=== PATIENT | female | born 1975 | race African-American/Black ===

== ENCOUNTER 2016-09-10 13:56 | Emergency (ER) | payer MEDICAID, OTHER ==
[~2016-09-10] VITALS: Ht 165.1 cm; Wt 100.0 kg
[~2016-09-10 13:56] MED LIST: BACT400T PO; DEPO150I IM; MECL-62 PO
[2016-09-10 13:57] VITALS: BP 157/84; PULSE 93; RESP 16; TEMP 98.4; O2SAT 100
--- NOTE | 2016-09-10 14:14 | PD ---
Physical Exam Time Seen by Provider: 14:13 Narrative 40 y/o female here with 3 days of dizziness, nausea, some frontal head congestion. She had similar symptoms 8 months ago and was dx with vertigo. Vital signs reviewed. Seen at triage desk. Awaiting bed placement. Data Data Last Documented VS Vital Signs Date Time Temp Pulse Resp B/P Pulse Ox O2 Delivery O2 Flow Rate FiO2 09/10/16 13:57 98.4 93 16 157/84 100 MDM Medical Record Reviewed: Yes Supervised Visit with NATALI: No Adalberto Echols Sep 10, 2016 14:14
--- NOTE | 2016-09-10 14:26 | PD ---
HPI Chief Complaint: Dizziness Time Seen by Provider: 14:26 Travel History International Travel<30 days: No Contact w/Intl Traveler<30days: No Traveled to known affect area: No History of Present Illness HPI 40 YO F presents to the ED for evaluation of 3 day history history of headache and dizziness. She describes the headache as pressure in the front of her face. She states that her eyes feel puffy and she has mild blurred vision. Symptoms are constant. She has been able to do her normal activities stating "I just go slower." No alleviating or exacerbating factors reported. Patient endorses recently beginning Prozac and has previous diagnosis of vertigo. She denies trauma, fevers, chills, rhinorrhea, sore throat, chest pain, palpitations , shortness of breath. PFSH Past Medical History Asthma: Yes Heart Rhythm Problems: No Cardiac Catheterization: No Cardiovascular Problems: No High Cholesterol: No Congestive Heart Failure: No Diabetes: No Diminished Hearing: No Hypertension: No Respiratory: Yes (ASTHMA) Immunizations Current: Yes Migraines: Yes Seizures: No ?: Not : 6 Para: 6 Tubal Ligation: Yes Past Surgical History Section: Yes (X1) Cholecystectomy: Yes Coronary Artery Bypass Graft: No Social History Alcohol Use: No Tobacco Use: No Substance Use: No Allergies-Medications (Allergen,Severity, Reaction): Coded Allergies: Chocolate (Verified Allergy, Mild, LIPS SWELLING, 05/04/16) Tomato (Verified Allergy, Mild, LIPS SWELLING, 05/04/16) Reported Meds & Prescriptions Reported Meds & Active Scripts Active Claritin-D 24 HR (Loratadine-Pseudoephedrine 24 HR) 10-240 Mg Tab 1 Tab PO DAILY 15 Days Meclizine (Meclizine HCl) 25 Mg Tab 25 Mg PO BID PRN Depo-Provera Inj (Medroxyprogesterone Inj) 150 Mg/Ml Inj 150 Mg IM Q90D Reported Meclizine (Meclizine HCl) 25 Mg Tab 25 Mg PO BID PRN Bactrim (Sulfamethoxazole-Trimethoprim) 400-80 Mg Tab 1 Tab PO DAILY Review of Systems Except as stated in HPI: all other systems reviewed are Neg Physical Exam Narrative GENERAL: Well-nourished, well-developed alert black female in no acute distress. SKIN: Warm and dry. HEAD: Normocephalic. Atraumatic. No tenderness to palpation of the facial sinuses. EYES: No scleral icterus. No injection or drainage. PERRLA. EOMI. ENT: Pearly hubbard tympanic membranes bilaterally. Nasal mucosa is moist. Oropharynx without erythema, edema or exudate. NECK: Supple, trachea midline. No JVD or lymphadenopathy. CARDIOVASCULAR: Regular rate and rhythm without murmurs, gallops, or rubs. 2+ DP and radial pulses bilaterally. RESPIRATORY: Breath sounds clear and equal bilaterally. No accessory muscle use. GASTROINTESTINAL: Abdomen soft, non-tender, nondistended. + Bowel sounds MUSCULOSKELETAL: No cyanosis, or edema. Ambulatory, moves extremities spontaneously. NEUROLOGICAL: Awake and alert. Cranial nerves II through XII intact. Motor and sensory grossly within normal limits. Five out of 5 muscle strength in all muscle groups. Normal speech. BACK: Nontender without obvious deformity. No CVA tenderness. Data Data Last Documented VS Vital Signs Date Time Temp Pulse Resp B/P Pulse Ox O2 Delivery O2 Flow Rate FiO2 09/10/16 15:30 83 15 145/93 88 14 150/99 100 16 156/97 09/10/16 13:[address] Brain W/O Iv Contrast(Rout) (09/10/16 14:39) Meclizine (Antivert) (09/10/16 14:45) Orthostatic Vital Signs (09/10/16 14:49) MDM Medical Decision Making Medical Screen Exam Complete: Yes Emergency Medical Condition: Yes Differential Diagnosis Vertigo versus sinusitis versus allergic reaction versus drug-induced side effect versus less likely ICH versus other Narrative Course 40 YO F presents to the ED for evaluation of 3 day history history of headache and dizziness. She describes the headache as pressure in the front of her face. She states that her eyes feel puffy and she has mild blurred vision. Symptoms are constant. She has been able to do her normal activities stating "I just go slower." No alleviating or exacerbating factors reported. Patient endorses recently beginning Prozac and has previous diagnosis of vertigo. Vitals reviewed. ENT exam is unremarkable. No focal neuro deficits. She was administered [address] of the brain reveals no acute bony process or evidence of sinusitis. He was provided a brief course of meclizine. She was also provided with a month's supply of Claritin. She is instructed to take medication as prescribed. We discussed the possibility of exact side effect. Patient's instructed to follow-up with her primary care provider. She stable and discharged home. Diagnosis Primary Impression: Dizziness Referrals: Primary Care Physician Patient Instructions: Dizziness (ED), General Instructions Additional Instructions: Rest, hydrate. Take medications as prescribed. Follow up with the primary care provider. Return to the ED for any urgent or emergent medical condition. Med/Other Pt SpecificInfo: Prescription(s) given Scripts Loratadine-Pseudoephedrine 24 HR (Claritin-D 24 HR)10-240 Mg Tab1 Tab PO DAILY 15 Days Ref 0 Prov:Yareli Knight MD 09/10/16 Meclizine 25 Mg Tab25 Mg PO BID PRN (VERTIGO) #14 TAB Ref 0 Prov:Yareli Knight MD 09/10/16 Disposition: 01 DISCHARGE HOME Condition: Stable Julia Peterson Sep 10, 2016 14:26
[2016-09-10] MEDS ORDERED: MECLIZINE HCL 25 MG TAB PO ONE (14:45)
--- NOTE | 2016-09-10 15:11 | RADRPT ---
EXAM DATE/TIME: 09/10/2016 15:00 [facility] COMPARISON: No previous studies available for comparison. INDICATIONS : Evaluate for dizziness and blurred vision, sinus pressure for three days. RADIATION DOSE: 56.35 CTDIvol (mGy) MEDICAL HISTORY : SURGICAL HISTORY : Cholecystectomy. Tubal ligation. ENCOUNTER: Initial ACUITY: 3 days PAIN SCALE: 2/10 LOCATION: Bilateral cranial TECHNIQUE: Multiple contiguous axial images were obtained of the head. Using automated exposure control and adj ustment of the mA and/or kV according to patient size, radiation dose was kept as low as reasonably a chievable to obtain optimal diagnostic quality images. DICOM format image data is available electro nically for review and comparison. FINDINGS: CEREBRUM: The ventricles are normal for age. No evidence of midline shift, mass lesion, hemorrhage or acute in farction. No extra-axial fluid collections are seen. POSTERIOR FOSSA: The cerebellum and brainstem are intact. The 4th ventricle is midline. The cerebellopontine angle i s unremarkable. EXTRACRANIAL: The visualized portion of the orbits is intact. SKULL: The calvaria is intact. No evidence of skull fracture. CONCLUSION: Negative for acute process. Ezequiel Campoverde MD FACR on September 10, 2016 at 15:09 Board Certified Radiologist. This report was verified electronically.
[2016-09-10] MEDS ORDERED: LORA-400 PO (15:19)
[2016-09-10] MEDS ORDERED: MECL-62 PO (15:19)
[2016-09-10 15:30] VITALS: BP_SYST 145; BP_SYST 150; BP_SYST 156; BP_DIAS 93; BP_DIAS 97; BP_DIAS 99; RESP 14; RESP 15; RESP 16
== END 2016-09-10 16:10 | disposition home or self-care (01) ==
LOC: NEPD 13:56
DX: R42 Dizziness and giddiness (principal); R51 Headache; J45.909 Unspecified asthma, uncomplicated; Z79.899 Other long term (current) drug therapy
CPT/HCPCS: 70450; 99284

== ENCOUNTER 2016-09-30 12:56 | Observation (INO) | payer OTHER ==
[~2016-09-30 12:56] MED LIST changes: +LORA-400 PO
[2016-09-30 12:59] VITALS: BP 164/83; PULSE 97; RESP 20; TEMP 98.1; O2SAT 100
--- NOTE | 2016-09-30 13:05 | PD ---
Physical Exam Time Seen by Provider: 13:05 Narrative 40 y/o female with one hour of abdominal/chest pain. Vital signs reviewed. Seen at triage desk. Awaiting bed placement. Data Data Last Documented VS Vital Signs Date Time Temp Pulse Resp B/P Pulse Ox O2 Delivery O2 Flow Rate FiO2 09/30/16 12:59 98.1 97 20 164/83 100 Room Air [facility] Medical Record Reviewed: Yes Supervised Visit with NATALI: Adalberto Gillis Sep 30, 2016 13:05
--- NOTE | 2016-09-30 14:22 | PD ---
HPI Chief Complaint: Chest Pain Time Seen by Provider: 14:18 Travel History International Travel<30 days: No Contact w/Intl Traveler<30days: No Traveled to known affect area: No History of Present Illness HPI 40-year-old female came to the emergency room with history of some abdominal pain yesterday but since past 2 hours she is started having left-sided chest pain. No aggravating or relieving factors. The pain seems to be like a dull ache. No radiation of the pain. Significant family history of her father dying of heart attack at the age of 60s. Vital signs are stable otherwise. Patient is not a smoker. No history of diabetes or hypertension. PFSH Past Medical History Narrative Medical List of her past medical, surgical, social and family history is reviewed from the nursing note. Asthma: Yes Heart Rhythm Problems: No Cardiac Catheterization: No Cardiovascular Problems: No High Cholesterol: No Congestive Heart Failure: No Diabetes: No Diminished Hearing: No Hypertension: No Respiratory: Yes (ASTHMA) Immunizations Current: Yes Migraines: Yes Seizures: No ?: Not LMP: august 2016 : 6 Para: 6 Tubal Ligation: Yes Past Surgical History Section: Yes (X1) Cholecystectomy: Yes Coronary Artery Bypass Graft: No Family History Family Myocardial Infarction: Yes (FATHER OF CT) Social History Alcohol Use: No Tobacco Use: No Substance Use: No Allergies-Medications (Allergen,Severity, Reaction): Coded Allergies: Chocolate (Verified Allergy, Mild, LIPS SWELLING, 09/30/16) Tomato (Verified Allergy, Mild, LIPS SWELLING, 09/30/16) Comments List of her allergies reviewed from the nursing note. Reported Meds & Prescriptions Reported Meds & Active Scripts Active Reported Sertraline (Sertraline HCl) 100 Mg Tab 100 Mg PO DAILY Meclizine 25 (Meclizine HCl) 25 Mg Tab 25 Mg PO BID PRN Ergocalciferol 50,000 Unit Cap 50,000 Units PO TUESDAY Narrative Medication List of her home medications reviewed from the nursing note. Review of Systems Except as stated in HPI: all other systems reviewed are Neg Physical Exam Narrative GENERAL: Awake, alert, obese, mild distress SKIN: Focused skin assessment warm/dry. HEAD: Atraumatic. Normocephalic. EYES: Pupils equal and round. No scleral icterus. No injection or drainage. ENT: No nasal bleeding or discharge. Mucous membranes pink and moist. NECK: Trachea midline. No JVD. CARDIOVASCULAR: Regular rate and rhythm. No murmur appreciated. RESPIRATORY: No accessory muscle use. Clear to auscultation. Breath sounds equal bilaterally. GASTROINTESTINAL: Abdomen soft, non-tender, nondistended. Hepatic and splenic margins not palpable. MUSCULOSKELETAL: No obvious deformities. No clubbing. No cyanosis. No edema. NEUROLOGICAL: Awake and alert. No obvious cranial nerve deficits. Motor grossly within normal limits. Normal speech. PSYCHIATRIC: Appropriate mood and affect; insight and judgment normal. Data Data Last Documented VS Vital Signs Date Time Temp Pulse Resp B/P Pulse Ox O2 Delivery O2 Flow Rate FiO2 09/30/16 12:59 98.1 97 20 164/83 100 Room Air Orders Electrocardiogram (09/30/16 ) Ckmb (Isoenzyme) Profile (09/30/16 13:15) Complete Blood Count With Diff (09/30/16 13:15) Comprehensive Metabolic Panel (09/30/16 13:15) Magnesium (Mg) (09/30/16 13:15) Troponin I (09/30/16 13:15) Lipase (09/30/16 13:15) Urinalysis - C+S If Indicated (09/30/16 13:15) Ed Urine Pregnancytest Poc (09/30/16 13:15) Chest, Pa & Lat (09/30/16 13:15) Aspirin Chew (Aspirin Chew) (09/30/16 15:00) Vascular Access Team Consult/P PRN (09/30/16 15:42) Vascular Poc Ultrasound (09/30/16 ) CKMB (09/30/16 16:00) CKMB% (09/30/16 16:00) Admit Order (Ed Use Only) (09/30/16 17:15) Place In Observation (09/30/16 17:15) Activity Bed Rest With Brp (09/30/16 17:15) Vital Signs (Adult) Q4H (09/30/16 17:15) Cardiac Rhythm .As Directed (09/30/16 17:15) Notify Dr: Other .PRN (09/30/16 17:15) Notify Parameters (09/30/16 17:15) Resp Oxygen Nasal Cannula (09/30/16 ) Diet Heart Healthy (09/30/16 Dinner) Ckmb (Isoenzyme) Profile (09/30/16 17:15) Ckmb (Isoenzyme) Profile (09/30/16 20:15) Troponin I (09/30/16 17:15) Troponin I (09/30/16 20:15) Electrocardiogram (09/30/16 17:15) Electrocardiogram (09/30/16 20:15) ^ Obtain (09/30/16 17:15) Sodium Chloride 0.9% Flush (Ns Flush) (09/30/16 17:15) Sodium Chloride 0.9% Flush (Ns Flush) (09/30/16 21:00) Acetaminophen (Tylenol) (09/30/16 17:15) Ondansetron Inj (Zofran Inj) (09/30/16 17:15) Nitroglycerin Sl (Nitrostat Sl) (09/30/16 17:15) Shot Polisher / Telemetry LEONARD.Q8H (09/30/16 17:15) CKMB (09/30/16 19:13) CKMB% (09/30/16 19:13) CKMB (09/30/16 22:30) CKMB% (09/30/16 22:30) Labs Laboratory Tests Test 09/30/16 16:00 White Blood Count 11.8 TH/MM3 Red Blood Count 4.30 MIL/MM3 Hemoglobin 11.5 GM/DL Hematocrit 35.8 % Mean Corpuscular Volume 83.2 FL Mean Corpuscular Hemoglobin 26.8 PG Mean Corpuscular Hemoglobin 32.2 % Concent Red Cell Distribution Width 14.6 % Platelet Count 328 TH/MM3 Mean Platelet Volume 7.8 FL Neutrophils (%) (Auto) 66.8 % Lymphocytes (%) (Auto) 25.2 % Monocytes (%) (Auto) 6.3 % Eosinophils (%) (Auto) 1.1 % Basophils (%) (Auto) 0.6 % Neutrophils # (Auto) 7.9 TH/MM3 Lymphocytes # (Auto) 3.0 TH/MM3 Monocytes # (Auto) 0.7 TH/MM3 Eosinophils # (Auto) 0.1 TH/MM3 Basophils # (Auto) 0.1 TH/MM3 CBC Comment DIFF FINAL Differential Comment Urine Color YELLOW Urine Turbidity HAZY Urine pH 5.5 Urine Specific [place] 1.024 Urine Protein TRACE mg/dL Urine Glucose (UA) NEG mg/dL Urine Ketones 40 mg/dL Urine Occult Blood NEG Urine Nitrite NEG Urine Bilirubin NEG Urine Urobilinogen LESS THAN 2.0 MG/DL Urine Leukocyte Esterase MOD Urine RBC 1 /hpf Urine WBC 2 /hpf Urine Squamous Epithelial 5 /hpf Cells Urine Bacteria RARE /hpf Urine Mucus FEW /lpf Microscopic Urinalysis Comment CULT NOT INDICATED Sodium Level 139 MEQ/L Potassium Level 3.3 MEQ/L Chloride Level 104 MEQ/L Carbon Dioxide Level 25.9 MEQ/L Anion Gap 9 MEQ/L Blood Urea Nitrogen 6 MG/DL Creatinine 0.84 MG/DL Estimat Glomerular Filtration 91 ML/MIN Rate Random Glucose 65 MG/DL Calcium Level 8.8 MG/DL Magnesium Level 1.9 MG/DL Total Bilirubin 0.4 MG/DL Aspartate Amino Transf 14 U/L (AST/SGOT) Alanine Aminotransferase 17 U/L (ALT/SGPT) Alkaline Phosphatase 101 U/L Total Creatine Kinase 117 U/L Creatine Kinase MB 0.7 NG/ML Troponin I LESS THAN 0.02 NG/ML Total Protein 8.7 GM/DL Albumin 3.8 GM/DL Lipase 110 U/L [facility] Medical Decision Making Medical Screen Exam Complete: Yes Emergency Medical Condition: Yes Medical Record Reviewed: Yes Interpretation(s) Twelve-lead EKG was reviewed by me. Normal sinus rhythm, normal axis, nonspecific ST-T wave changes. Heart rate of 88 bpm. Differential Diagnosis ACS, non-STEMI, nonspecific chest Narrative Course 5:18 PM the test results of back and within normal limit. Patient was given 2 baby aspirin's to chew. She does have fact there and the formal family history , obesity and -Romanian. I would prefer to admit her to the chest pain center so that the tar pot man can see her and rule her out. I spent this to the patient and she understands. Procedures EKG Prior to Arrival: No Diagnosis Primary Impression: Chest pain Qualified Code: R07.9 - Chest pain, unspecified type Admitting Information Admitting Physician Requests: Observation Jefferson Gates MD Sep 30, 2016 14:22
--- NOTE | 2016-09-30 14:33 | RADRPT ---
EXAM DATE/TIME: 09/30/2016 14:06 [facility] COMPARISON: CHEST PA & LAT, October 17, 2013, 22:40. INDICATIONS : Chest pain. MEDICAL HISTORY : None. SURGICAL HISTORY : None. ENCOUNTER: Initial ACUITY: 2 days PAIN SCORE: 5/10 LOCATION: Bilateral upper chest FINDINGS: PA and lateral views of the chest demonstrate the lungs to be symmetrically aerated without evidence of mass, infiltrate or effusion. The cardiomediastinal contours are unremarkable. Osseous structure s are intact. CONCLUSION: Normal examination. Clips suggest cholecystectomy Ananda Fabian MD on September 30, 2016 at 14:30 Board Certified Radiologist. This report was verified electronically.
[2016-09-30] MEDS ORDERED: ASPIRIN 81 MG CHEW TAB CHEW ONE (15:00)
[2016-09-30 16:38] LABS: AUTOMATED NEUTROPHIL # 7.9 TH/MM3 (1.8-7.7); BASOPHIL # 0.1 TH/MM3 (0-0.2); BASOPHIL % 0.6 % (0.0-2.0); EOSINOPHIL # 0.1 TH/MM3 (0-0.4); EOSINOPHIL % 1.1 % (0.0-4.0); HEMATOCRIT 35.8 % (35.0-46.0); HEMO FLAGS DIFF FINAL; LYMPH % 25.2 % (9.0-44.0); MEAN CELL VOLUME 83.2 FL (80.0-100.0); MEAN CORPUSCULAR HEMOGLOBIN 26.8 PG (27.0-34.0); MEAN CORPUSCULAR HGB CONC 32.2 % (32.0-36.0); MONO % 6.3 % (0.0-8.0); NEUT % 66.8 % (16.0-70.0); PLATELET COUNT 328 TH/MM3 (150-450); RED CELL DISTRIBUTION WIDTH 14.6 % (11.6-17.2); WHITE BLOOD COUNT 11.8 TH/MM3 (4.0-11.0)
[2016-09-30 16:39] LABS: BACTERIA, URINE RARE /hpf; BLOOD, URINE NEG (NEG); COMMENT (UR) CULT NOT INDICATED; CULTURE IF INDICATED CULT NOT INDICATED; GLUCOSE,URINE NEG (NEG); KETONE, URINE 40 mg/dL (NEG); MUCUS URINE FEW /lpf (OCC); NITRITE,URINE NEG (NEG); PH, URINE 5.5 (5.0-8.5); SQUAMOUS EPITHELIAL CELL URINE 5 /hpf (0-5); URINE COLOR YELLOW (YELLW/STRAW)
[2016-09-30 17:06] LABS: ALT (GPT) 17 U/L (10-53); ANION GAP 9 MEQ/L (5-15); AST (GOT) 14 U/L (15-37); BICARBONATE 25.9 MEQ/L (21.0-32.0); BLOOD UREA NITROGEN 6 MG/DL (7-18); CHLORIDE 104 MEQ/L (98-107); GLOMERULAR FILTRATION RATE 91 ML/MIN (>89); MAGNESIUM 1.9 MG/DL (1.5-2.5); POTASSIUM 3.3 MEQ/L (3.5-5.1); SODIUM (NA) 139 MEQ/L (136-145)
[2016-09-30 17:10] LABS: ALKALINE PHOSPHATASE 101 U/L (45-117); CREATINE KINASE 117 U/L (26-192); TOTAL BILIRUBIN ADULT 0.4 MG/DL (0.2-1.0)
[2016-09-30] MEDS ORDERED: ACETAMINOPHEN 500 MG CPLT PO PRN (17:15)
[2016-09-30] MEDS ORDERED: ONDANSETRON HCL 4 MG/2 ML VIAL IV PRN (17:15)
[2016-09-30] MEDS ORDERED: NITROGLYCERIN 0.4 MG SL 25 TABS/BTL SL PRN (17:15)
[2016-09-30] MEDS ORDERED: SODIUM CHLORIDE 0.9% FLUSH 10 ML FLUSH IV FLUSH PRN (17:15)
[2016-09-30 17:22] LABS: CKMB 0.7 NG/ML (0.5-3.6)
[2016-09-30 18:13] VITALS: O2SAT 94
[2016-09-30 18:19] VITALS: BP 140/93; PULSE 92; RESP 18; O2SAT 99
[2016-09-30] MEDS ORDERED: MECL1TAB42 PO (19:12)
[2016-09-30] MEDS ORDERED: ERGO1CAP30 PO (19:12)
[2016-09-30 19:13] VITALS: BP 121/71; PULSE 87; RESP 18; O2SAT 100
[2016-09-30] MEDS ORDERED: SERT-129 PO (19:22)
[2016-09-30 20:11] VITALS: BP 144/92; PULSE 88; RESP 18; TEMP 99.2; O2SAT 97
[2016-09-30 20:55] LABS: CREATINE KINASE 111 U/L (26-192)
[2016-09-30 21:07] LABS: CKMB 0.7 NG/ML (0.5-3.6)
[2016-09-30] MEDS: SODIUM CHLORIDE 0.9% FLUSH 10 ML FLUSH IV FLUSH SCH (21:35)
[2016-09-30 23:11] LABS: CREATINE KINASE 101 U/L (26-192)
[2016-09-30 23:23] LABS: CKMB 0.5 NG/ML (0.5-3.6)
[2016-09-30 23:30] VITALS: BP 118/55; PULSE 93; RESP 18; TEMP 98.9; O2SAT 99
[2016-10-01 01:00] VITALS: PULSE 95
[2016-10-01 03:34] VITALS: BP 121/66; PULSE 93; RESP 18; TEMP 98.7; O2SAT 99
[2016-10-01 04:15] VITALS: PULSE 80
[2016-10-01 07:42] VITALS: BP 142/74; PULSE 85; RESP 18; TEMP 98.6; O2SAT 99
[2016-10-01] MEDS ORDERED: POTASSIUM CHLORIDE 20 MEQ CONTROLLED RELEASE TAB PO ONE (07:45)
[2016-10-01 08:08] VITALS: PULSE 86
--- NOTE | 2016-10-01 08:59 | HHI.HP ---
HPI Primary Care Physician No Primary Care Physician Chief Complaint Chest pain History of Present Illness This is a 40-year-old female that presents to ED via private vehicle with a complaint of chest discomfort that began yesterday at work. It lasted less than a minute. No associated symptoms. It has not recurred. Denies . Review of Systems General: Patient denies fevers, chills recent, and recent travel HEENT: Patient denies headache, sore throat, difficulty swallowing. Cardiovascular: Has the chest discomfort as mentioned above. Denies sensation of heart beating rapidly or irregularly. No syncope. Respiratory: Denies shortness of breath or inspirational chest discomfort. Denies coughing wheezing or hemoptysis. GI: Patient denies nausea, vomiting, diarrhea, abdominal pain, bloody stools. Musculoskeletal: Patient denies joint pain or edema. Denies calf pain or edema. Neurovascular: Patient denies numbness, tingling, weakness in extremities. Denies headache. Endocrine: Denies polyuria and polydipsia. Hematologic: Denies easy bruising. Skin: Denies rash or itching. Past Family Social History Allergies: Coded Allergies: Chocolate (Verified Allergy, Mild, LIPS SWELLING, 09/30/16) Tomato (Verified Allergy, Mild, LIPS SWELLING, 09/30/16) Past Medical History Denies hypertension, hyperlipidemia, diabetes, and known CAD. Past Surgical History Noncontributory. Reported Medications Reported Meds & Active Scripts Active Reported Sertraline (Sertraline HCl) 100 Mg Tab 100 Mg PO DAILY Meclizine 25 (Meclizine HCl) 25 Mg Tab 25 Mg PO BID PRN Ergocalciferol 50,000 Unit Cap 50,000 Units PO TUESDAY Active Ordered Medications Current Medications Medications (Trade) Dose Ordered Sig/Ibis Route Start Time Stop Time Status Last Admin (NS Flush) 2 ml UNSCH PRN IV FLUSH 09/30/16 17:15 (NS Flush) 2 ml BID IV FLUSH 09/30/16 21:00 09/30/16 21:35 (Tylenol) 500 mg Q4H PRN PO 09/30/16 17:15 (Zofran Inj) 4 mg Q6H PRN IV 09/30/16 17:15 (Nitrostat Sl) 0.4 mg Q5M PRN SL 09/30/16 17:15 Family History Her father in his 60s of an MA. Social History Patient does not smoke, drink alcohol, use illicit drugs. Physical Exam Vital Signs Vital Signs Date Time Temp Pulse Resp B/P Pulse Ox O2 Delivery O2 Flow Rate FiO2 10/01/16 07:42 98.6 85 18 142/74 99 10/01/16 04:15 80 10/01/16 03:34 98.7 93 18 121/66 99 10/01/16 01:00 95 09/30/16 23:30 98.9 93 18 118/55 99 09/30/16 20:11 99.2 88 18 144/92 97 09/30/16 19:13 87 18 121/71 100 Room Air 09/30/16 18:19 92 18 140/93 99 Room Air 09/30/16 18:13 94 21 09/30/16 12:59 98.1 97 20 164/83 100 Room Air Physical Exam GENERAL: This is a well-nourished, well-developed patient, in no apparent distress. Patient speaks in clear complete sentences. Patient is pleasant. HEENT: Head is atraumatic and normocephalic. Neck is supple without lymphadenopathy and trachea is midline. No JVD or carotid bruits. CARDIOVASCULAR: Regular rate and rhythm without murmurs, gallops, or rubs. RESPIRATORY: Clear to auscultation. Breath sounds equal bilaterally. No wheezes , rales, or rhonchi. Chest wall is nontender. No use of accessory muscles. GASTROINTESTINAL: Abdomen is nontender, nondistended. Abdomen soft. No obvious pulsatile mass or bruit. No CVA tenderness. Strong femoral pulses bilaterally. Normal bowel sounds in all quadrants. MUSCULOSKELETAL: Patient is moving upper and lower extremities freely. No calf tenderness or edema, no Homans sign. Strong pulses in upper and lower extremities. NEUROLOGICAL: Patient is alert and oriented. Cranial nerves 2-12 are grossly intact. No focal deficits and speech is clear. SKIN: No rash and turgor is normal. Laboratory Laboratory Tests Test 09/30/16 09/30/16 09/30/16 16:00 19:13 22:30 White Blood Count 11.8 Red Blood Count 4.30 Hemoglobin 11.5 Hematocrit 35.8 Mean Corpuscular Volume 83.2 Mean Corpuscular Hemoglobin 26.8 Mean Corpuscular Hemoglobin 32.2 Concent Red Cell Distribution Width 14.6 Platelet Count 328 Mean Platelet Volume 7.8 Neutrophils (%) (Auto) 66.8 Lymphocytes (%) (Auto) 25.2 Monocytes (%) (Auto) 6.3 Eosinophils (%) (Auto) 1.1 Basophils (%) (Auto) 0.6 Neutrophils # (Auto) 7.9 Lymphocytes # (Auto) 3.0 Monocytes # (Auto) 0.7 Eosinophils # (Auto) 0.1 Basophils # (Auto) 0.1 CBC Comment DIFF FINAL Differential Comment Urine Color YELLOW Urine Turbidity HAZY Urine pH 5.5 Urine Specific [place] 1.024 Urine Protein TRACE Urine Glucose (UA) NEG Urine Ketones 40 Urine Occult Blood NEG Urine Nitrite NEG Urine Bilirubin NEG Urine Urobilinogen LESS THAN 2.0 Urine Leukocyte Esterase MOD Urine RBC 1 Urine WBC 2 Urine Squamous Epithelial 5 Cells Urine Bacteria RARE Urine Mucus FEW Microscopic Urinalysis Comment CULT NOT INDICATED Sodium Level 139 Potassium Level 3.3 Chloride Level 104 Carbon Dioxide Level 25.9 Anion Gap 9 Blood Urea Nitrogen 6 Creatinine 0.84 Estimat Glomerular Filtration 91 Rate Random Glucose 65 Calcium Level 8.8 Magnesium Level 1.9 Total Bilirubin 0.4 Aspartate Amino Transf 14 (AST/SGOT) Alanine Aminotransferase 17 (ALT/SGPT) Alkaline Phosphatase 101 Total Creatine Kinase 117 111 101 Creatine Kinase MB 0.7 0.7 0.5 Troponin I LESS THAN 0.02 LESS THAN 0.02 LESS THAN 0.02 Total Protein 8.7 Albumin 3.8 Lipase 110 Result Diagram: 09/30/16 1600 09/30/16 1600 Imaging Last 48 hours Impressions Chest X-Ray 09/30/16 1315 Signed Impressions: Service Date/Time: September 14:06 - CONCLUSION: Normal examination. Clips suggest cholecystectomy Ananda Fabian MD Course EKGs have been sinus rhythm without significant ST segment depressions or elevations. Assessment and Plan Assessment and Plan * Chest pain: Her discomfort is atypical. She was seen by Dr. Issac Mathew of cardiology in the chest pain center. She will undergo a Yakov protocol ETT and be discharged if this is nonischemic. She should follow-up with local primary care physician. Patient is stable at this time. She is agreeable to this plan. Aashish Acuna Oct 01, 2016 08:59
--- NOTE | 2016-10-01 09:43 | HHI.DCPOC ---
Discharge Care Plan Diagnosis: (1) Chest pain, atypical Goals to Promote Your Health * To prevent worsening of your condition and complications * To maintain your health at the optimal level Directions to Meet Your Goals Take your medications as prescribed Follow your dietary instruction Follow activity as directed Keep your appointments as scheduled Take your immunizations and boosters as scheduled If your symptoms worsen call your PCP, if no PCP go to Urgent Care Center or Emergency Room Smoking is Dangerous to Your Health. Avoid second hand smoke Call the 24-hour hour crisis hotline for domestic abuse at Aashish Acuna Oct 01, 2016 09:42
[2016-10-01] MEDS: SODIUM CHLORIDE 0.9% FLUSH 10 ML FLUSH IV FLUSH SCH (10:03)
--- NOTE | 2016-10-01 12:46 | EKG ---
Date Performed: 09/30/2016 Time Performed: 18:43:22 PTAGE: 40 years EKG: Sinus rhythm NORMAL ECG PREVIOUS TRACING : 09/30/2016 13.13 Since previous tracing, no significant change noted DOCTOR: Issac Mathew Interpretating Date/Time 10/01/2016 12:45:09
--- NOTE | 2016-10-01 12:46 | EKG ---
Date Performed: 09/30/2016 Time Performed: 13:13:39 PTAGE: 40 years EKG: Sinus rhythm NORMAL ECG PREVIOUS TRACING : 07/23/2015 21.25 Since previous tracing, no significant change noted DOCTOR: Issac Mathew Interpretating Date/Time 10/01/2016 12:45:23
--- NOTE | 2016-10-01 12:53 | TR ---
Date Performed: 10/01/2016 Time Performed: 08:53:23 DOCTOR: Issac Mathew DRUG LIST: CLINICAL HISTORY: CHEST PAIN R/O ACS REASON FOR TEST: REASON FOR ENDING: SCOOBY PROTOCOL. NO CP. TEST STOPPED AFTER EXCEEDING GOAL HR SECONDARY TO SOB AND LEG FATIGUE.Maximum SF=457 % Max HR Ugmhquss=542.0% Maximum UX=028/78 Total Exercise Time=7:01 OBSERVATION: CONCLUSION: Patient exercised using the Scooby protocol. No electrocardiographic changes were see n to suggest ischemia. Hemodynamic response to exercise was normal. No significant arrhythmia was pre sent. COMMENTS:
--- NOTE | 2016-10-02 15:35 | EKG ---
Date Performed: 09/30/2016 Time Performed: 22:04:48 PTAGE: 40 years EKG: Sinus rhythm NORMAL ECG PREVIOUS TRACING : 09/30/2016 18.43 Since previous tracing, no significant change noted DOCTOR: Killian Musa Interpretating Date/Time 10/02/2016 15:34:00
== END 2016-10-01 13:54 | disposition home or self-care (01) ==
LOC: NEPD 12:56 → NEDA 17:17 → NEPGCP 20:06
PROVIDERS: ADMIT Internal Medicine Cardiovascular Disease; ATTEND Internal Medicine Cardiovascular Disease
DX: R07.89 Other chest pain (principal); R10.9 Unspecified abdominal pain; J45.909 Unspecified asthma, uncomplicated; Z82.49 Family history of ischemic heart disease and other diseases of the circulatory system
CPT/HCPCS: 71020; 76937; 80053; 81001; 82550; 82552; 83690; 83735; 84484; 84703; 85025; 93005; 93017; 99285; G0378

== ENCOUNTER 2016-11-17 15:20 | Emergency (ER) | payer OTHER ==
[~2016-11-17] VITALS: Ht 165.1 cm; Wt 98.0 kg
[~2016-11-17 15:20] MED LIST changes: -BACT400T PO; -DEPO150I IM; +ERGO1CAP30 PO; -LORA-400 PO; -MECL-62 PO; +MECL1TAB42 PO; +SERT-129 PO
[2016-11-17 15:27] VITALS: BP 167/90; PULSE 103; RESP 20; TEMP 99; O2SAT 99
[2016-11-17] MEDS ORDERED: SODIUM CHLOR 0.9% 1000 ML INJ 1,000 ML IV ONE (16:28)
[2016-11-17] MEDS ORDERED: ONDANSETRON HCL 4 MG/2 ML VIAL IVP ONE (16:30)
[2016-11-17] MEDS ORDERED: KETOROLAC TROMETHAMINE 30 MG/ML (IVP) VIAL IV PUSH ONE (16:30)
[2016-11-17] MEDS ORDERED: MORPHINE SULFATE 4 MG/ML INJ IV PUSH ONE (16:30)
--- NOTE | 2016-11-17 16:36 | PD ---
HPI Chief Complaint: Abdominal Pain Time Seen by Provider: 16:13 Travel History International Travel<30 days: No Contact w/Intl Traveler<30days: No Traveled to known affect area: No History of Present Illness HPI The patient is a 40-year-old female who presents to the emergency department for left lower quadrant abdominal pain. The patient's pain started yesterday, is intermittent, described as sharp, radiates from the left lower quadrant to the suprapubic region, and is associated with mild vaginal spotting. The patient has a history of irregular menstrual cycles, last menstrual cycle was 3 weeks ago. The patient is sexually active, denies any associated dysuria, frequency, urgency, or vaginal discharge. The patient does have a history of ovarian cyst. Previous abdominal surgeries include section and cholecystectomy. The patient denies any fever, chills, sweats, or back pain. Symptoms are moderate without any alleviating or exacerbating factors. PFSH Past Medical History Asthma: Yes Heart Rhythm Problems: No Cardiac Catheterization: No Cardiovascular Problems: No High Cholesterol: No Congestive Heart Failure: No Diabetes: No Diminished Hearing: No Hypertension: No Respiratory: Yes (ASTHMA) Immunizations Current: Yes Migraines: Yes Seizures: No ?: Unknown LMP: last month : 6 Para: 6 Tubal Ligation: Yes Past Surgical History Section: Yes (X1) Cholecystectomy: Yes Coronary Artery Bypass Graft: No Social History Alcohol Use: No Tobacco Use: No Substance Use: No Allergies-Medications (Allergen,Severity, Reaction): Coded Allergies: chocolate flavor (Unverified Allergy, Mild, LIPS SWELLING, 10/26/16) tomato (Unverified Allergy, Mild, LIPS SWELLING, 10/26/16) Reported Meds & Prescriptions Reported Meds & Active Scripts Active Ciprofloxacin (Ciprofloxacin HCl) 500 Mg Tab 500 Mg PO BID 7 Days Flagyl (Metronidazole) 250 Mg Tab 250 Mg PO TID 7 Days Reported Sertraline (Sertraline HCl) 100 Mg Tab 100 Mg PO DAILY Meclizine 25 (Meclizine HCl) 25 Mg Tab 25 Mg PO BID PRN Ergocalciferol 50,000 Unit Cap 50,000 Units PO TUESDAY Review of Systems Except as stated in HPI: all other systems reviewed are Neg General / Constitutional: No: Fever Cardiovascular: No: Chest Pain or Discomfort Respiratory: No: Shortness of Breath Gastrointestinal: Positive: Abdominal Pain, No: Nausea, Vomiting, Diarrhea Genitourinary: Positive: Pelvic Pain, Vaginal Bleeding (spotting), No: Urgency , Frequency, Dysuria, Hematuria, Discharge Skin: No Rash Physical Exam Narrative GENERAL: Awake, alert, pleasant 40-year-old female who appears her stated age and is in no acute respiratory distress. SKIN: Focused skin assessment warm/dry. HEAD: Atraumatic. Normocephalic. EYES: No injection or drainage. ENT: No nasal bleeding or discharge. Mucous membranes pink and moist. NECK: Trachea midline. No JVD. CARDIOVASCULAR: Regular rate and rhythm. No murmur appreciated. RESPIRATORY: No accessory muscle use. Clear to auscultation. Breath sounds equal bilaterally. GASTROINTESTINAL: Abdomen soft, tender palpation left lower quadrant and suprapubic, no guarding or rigidity. Back: No CVA tenderness. Genitourinary: The exam was performed in the presence of a female nurse. External examination reveals no rashes or lesions. Speculum examination reveals scant red discharge in vaginal vault. Cervix is closed. No cervical motion tenderness. No adnexal tenderness. MUSCULOSKELETAL: No obvious deformities. No clubbing. No cyanosis. No edema. NEUROLOGICAL: Awake and alert. No obvious cranial nerve deficits. Motor grossly within normal limits. Normal speech. PSYCHIATRIC: Appropriate mood and affect; insight and judgment normal. Data Data Last Documented VS Vital Signs Date Time Temp Pulse Resp B/P (MAP) Pulse Ox O2 Delivery O2 Flow Rate FiO2 11/17/16 18:30 17 11/17/16 15:27 99.0 103 167/90 (115) 99 Orders Orders Complete Blood Count With Diff (11/17/16 16:28) Comprehensive Metabolic Panel (11/17/16 16:28) Gc And Chlamydia Pcr (11/17/16 16:28) Wet Prep Profile (11/17/16 16:28) Urinalysis - C+S If Indicated (11/17/16 16:28) Iv Access Insert/Monitor (11/17/16 16:28) Ecg Monitoring (11/17/16 16:28) Sodium Chlor 0.9% 1000 Ml Inj (Ns 1000 M (11/17/16 16:28) Ondansetron Inj (Zofran Inj) (11/17/16 16:30) Lipase (11/17/16 16:28) Ketorolac Inj (Toradol Inj) (11/17/16 16:30) Morphine Inj (Morphine Inj) (11/17/16 16:30) Vascular Poc Ultrasound (11/17/16 ) Vascular Access Team Consult/P PRN (11/17/16 16:59) Metronidazole (Flagyl) (11/17/16 20:00) Ciprofloxacin (Cipro) (11/17/16 20:00) Labs Laboratory Tests Test 11/17/16 16:45 11/17/16 16:50 11/17/16 17:50 Urine Color YELLOW Urine Turbidity HAZY Urine pH 6.0 Urine Specific [place] 1.028 Urine Protein TRACE mg/dL Urine Glucose (UA) NEG mg/dL Urine Ketones NEG mg/dL Urine Occult Blood MOD Urine Nitrite NEG Urine Bilirubin NEG Urine Urobilinogen LESS THAN 2.0 MG/DL Urine Leukocyte Esterase NEG Urine RBC 1 /hpf Urine WBC 1 /hpf Urine Squamous Epithelial Cells 4 /hpf Urine Bacteria RARE /hpf Microscopic Urinalysis Comment CULT NOT INDICATED Clue Cells (Wet Prep) PRESENT Vaginal Trichomonas (Wet Prep) NONE SEEN Vaginal Yeast (Wet Prep) NONE SEEN Chlamydia trachomatis DNA (PCR) NOT DETECTED Neisseria gonorrhoeae DNA (PCR) NOT DETECTED White Blood Count 12.0 TH/MM3 Red Blood Count 3.96 MIL/MM3 Hemoglobin 10.5 GM/DL Hematocrit 32.8 % Mean Corpuscular Volume 82.8 FL Mean Corpuscular Hemoglobin 26.6 PG Mean Corpuscular Hemoglobin Concent 32.1 % Red Cell Distribution Width 15.0 % Platelet Count 324 TH/MM3 Mean Platelet Volume 7.6 FL Neutrophils (%) (Auto) 63.2 % Lymphocytes (%) (Auto) 25.8 % Monocytes (%) (Auto) 8.9 % Eosinophils (%) (Auto) 1.5 % Basophils (%) (Auto) 0.6 % Neutrophils # (Auto) 7.6 TH/MM3 Lymphocytes # (Auto) 3.1 TH/MM3 Monocytes # (Auto) 1.1 TH/MM3 Eosinophils # (Auto) 0.2 TH/MM3 Basophils # (Auto) 0.1 TH/MM3 CBC Comment DIFF FINAL Differential Comment Blood Urea Nitrogen 11 MG/DL Creatinine 0.82 MG/DL Random Glucose 85 MG/DL Total Protein 7.6 GM/DL Albumin 3.4 GM/DL Calcium Level 8.6 MG/DL Alkaline Phosphatase 96 U/L Aspartate Amino Transf (AST/SGOT) 12 U/L Alanine Aminotransferase (ALT/SGPT) 17 U/L Total Bilirubin 0.2 MG/DL Sodium Level 137 MEQ/L Potassium Level 3.7 MEQ/L Chloride Level 105 MEQ/L Carbon Dioxide Level 24.5 MEQ/L Anion Gap 8 MEQ/L Estimat Glomerular Filtration Rate 94 ML/MIN Lipase 132 U/L MDM Medical Decision Making Medical Screen Exam Complete: Yes Emergency Medical Condition: Yes Medical Record Reviewed: Yes Differential Diagnosis Differential diagnosis includes UTI, , ectopic , cervicitis, vaginitis, ovarian torsion, ovarian cyst, atypical appendicitis, diverticulitis , nephrolithiasis. Narrative Course IV was established, labs are drawn and sent, and the patient was placed on cardiac telemetry monitoring and continuous pulse oximetry monitoring. The patient was administered morphine, Toradol, Zofran, and IV fluids. A pelvic examination was completed in the presence of a female nurse. Wet prep was sent to lab. The patient was signed out to the oncoming physician at 5 PM laboratory evaluation and reevaluation of pain pending. Bedside UA test was negative. Pelvic exam reveals scant red to clear discharge in the vaginal vault, unremarkable examination. Scripts Ciprofloxacin (Ciprofloxacin) 500 Mg Tab 500 MG PO BID for Infection for 7 Days, TAB 0 Refills Prov: Jefferson Gates MD 11/17/16 Metronidazole (Flagyl) 250 Mg Tab 250 MG PO TID for Infection for 7 Days, TAB 0 Refills Prov: Jefferson Gates MD 11/17/16 Condition: Stable Ori Wilder MD Nov 17, 2016 16:36
[2016-11-17 17:21] LABS: BACTERIA, URINE RARE /hpf; BLOOD, URINE MOD (NEG); COMMENT (UR) CULT NOT INDICATED; CULTURE IF INDICATED CULT NOT INDICATED; GLUCOSE,URINE NEG (NEG); KETONE, URINE NEG (NEG); NITRITE,URINE NEG (NEG); SQUAMOUS EPITHELIAL CELL URINE 4 /hpf (0-5); URINE COLOR YELLOW (YELLW/STRAW)
[2016-11-17 17:57] LABS: AUTOMATED NEUTROPHIL # 7.6 TH/MM3 (1.8-7.7); BASOPHIL # 0.1 TH/MM3 (0-0.2); BASOPHIL % 0.6 % (0.0-2.0); EOSINOPHIL # 0.2 TH/MM3 (0-0.4); EOSINOPHIL % 1.5 % (0.0-4.0); HEMATOCRIT 32.8 % (35.0-46.0); HEMO FLAGS DIFF FINAL; LYMPH % 25.8 % (9.0-44.0); LYMPHOCYTE # 3.1 TH/MM3 (1.0-4.8); MEAN CELL VOLUME 82.8 FL (80.0-100.0); MEAN CORPUSCULAR HEMOGLOBIN 26.6 PG (27.0-34.0); MEAN CORPUSCULAR HGB CONC 32.1 % (32.0-36.0); MONO % 8.9 % (0.0-8.0); NEUT % 63.2 % (16.0-70.0); PLATELET COUNT 324 TH/MM3 (150-450); RED BLOOD COUNT 3.96 MIL/MM3 (4.00-5.30)
[2016-11-17 18:26] LABS: AST (GOT) 12 U/L (15-37); BICARBONATE 24.5 MEQ/L (21.0-32.0); BLOOD UREA NITROGEN 11 MG/DL (7-18); GLOMERULAR FILTRATION RATE 94 ML/MIN (>89)
[2016-11-17 18:27] LABS: ALT (GPT) 17 U/L (10-53)
[2016-11-17 18:30] VITALS: RESP 17
[2016-11-17 19:12] LABS: CHLAMYDIA PCR NOT DETECTED (NOT DETECT); NEISSERIA PCR NOT DETECTED (NOT DETECT)
[2016-11-17 19:44] LABS: ALKALINE PHOSPHATASE 96 U/L (45-117); ANION GAP 8 MEQ/L (5-15); CHLORIDE 105 MEQ/L (98-107); POTASSIUM 3.7 MEQ/L (3.5-5.1); SODIUM (NA) 137 MEQ/L (136-145); TOTAL BILIRUBIN ADULT 0.2 MG/DL (0.2-1.0)
[2016-11-17] MEDS ORDERED: metroNIDAZOLE 500 MG TAB PO ONE (20:00)
[2016-11-17] MEDS ORDERED: CIPROFLOXACIN 500 MG TAB PO ONE (20:00)
[2016-11-17] MEDS ORDERED: CIPR500T2 PO (20:02)
[2016-11-17] MEDS ORDERED: METR250 PO (20:02)
--- NOTE | 2016-11-17 20:02 | PD ---
Physical Exam Date Seen by Provider: Nov 17, 2016 Time Seen by Provider: 19:59 Narrative 40-year-old female came to the emergency room with history of no pain that was left lower quadrant. Patient was seen by the previous ER physician. Please refer to his history and physical regarding further details. Sign out was to follow-up on the test results. There was a pelvic exam done by the previous ER physician. So far all the test results are back and patient has slight leukocytosis and wet prep is positive for BV. I will discharge the patient home on Flagyl and ciprofloxacin. The previous ER physician slightly concerned for possible diverticulitis. This regimen should treat that as well. I just went back and reassessed her. She looked very comfortable. I will not subject her through a CAT scan at this point. Patient is comfortable with that plan. Data Data Last Documented VS Orders Orders Complete Blood Count With Diff (11/17/16 16:28) Comprehensive Metabolic Panel (11/17/16 16:28) Gc And Chlamydia Pcr (11/17/16 16:28) Wet Prep Profile (11/17/16 16:28) Urinalysis - C+S If Indicated (11/17/16 16:28) Iv Access Insert/Monitor (11/17/16 16:28) Ecg Monitoring (11/17/16 16:28) Sodium Chlor 0.9% 1000 Ml Inj (Ns 1000 M (11/17/16 16:28) Ondansetron Inj (Zofran Inj) (11/17/16 16:30) Lipase (11/17/16 16:28) Ketorolac Inj (Toradol Inj) (11/17/16 16:30) Morphine Inj (Morphine Inj) (11/17/16 16:30) Vascular Poc Ultrasound (11/17/16 ) Vascular Access Team Consult/P PRN (11/17/16 16:59) Metronidazole (Flagyl) (11/17/16 20:00) Ciprofloxacin (Cipro) (11/17/16 20:00) Labs Laboratory Tests Test 11/17/16 16:45 11/17/16 16:50 11/17/16 17:50 Urine Color YELLOW Urine Turbidity HAZY Urine pH 6.0 Urine Specific [place] 1.028 Urine Protein TRACE mg/dL Urine Glucose (UA) NEG mg/dL Urine Ketones NEG mg/dL Urine Occult Blood MOD Urine Nitrite NEG Urine Bilirubin NEG Urine Urobilinogen LESS THAN 2.0 MG/DL Urine Leukocyte Esterase NEG Urine RBC 1 /hpf Urine WBC 1 /hpf Urine Squamous Epithelial Cells 4 /hpf Urine Bacteria RARE /hpf Microscopic Urinalysis Comment CULT NOT INDICATED Clue Cells (Wet Prep) PRESENT Vaginal Trichomonas (Wet Prep) NONE SEEN Vaginal Yeast (Wet Prep) NONE SEEN Chlamydia trachomatis DNA (PCR) NOT DETECTED Neisseria gonorrhoeae DNA (PCR) NOT DETECTED White Blood Count 12.0 TH/MM3 Red Blood Count 3.96 MIL/MM3 Hemoglobin 10.5 GM/DL Hematocrit 32.8 % Mean Corpuscular Volume 82.8 FL Mean Corpuscular Hemoglobin 26.6 PG Mean Corpuscular Hemoglobin Concent 32.1 % Red Cell Distribution Width 15.0 % Platelet Count 324 TH/MM3 Mean Platelet Volume 7.6 FL Neutrophils (%) (Auto) 63.2 % Lymphocytes (%) (Auto) 25.8 % Monocytes (%) (Auto) 8.9 % Eosinophils (%) (Auto) 1.5 % Basophils (%) (Auto) 0.6 % Neutrophils # (Auto) 7.6 TH/MM3 Lymphocytes # (Auto) 3.1 TH/MM3 Monocytes # (Auto) 1.1 TH/MM3 Eosinophils # (Auto) 0.2 TH/MM3 Basophils # (Auto) 0.1 TH/MM3 CBC Comment DIFF FINAL Differential Comment Blood Urea Nitrogen 11 MG/DL Creatinine 0.82 MG/DL Random Glucose 85 MG/DL Total Protein 7.6 GM/DL Albumin 3.4 GM/DL Calcium Level 8.6 MG/DL Alkaline Phosphatase 96 U/L Aspartate Amino Transf (AST/SGOT) 12 U/L Alanine Aminotransferase (ALT/SGPT) 17 U/L Total Bilirubin 0.2 MG/DL Sodium Level 137 MEQ/L Potassium Level 3.7 MEQ/L Chloride Level 105 MEQ/L Carbon Dioxide Level 24.5 MEQ/L Anion Gap 8 MEQ/L Estimat Glomerular Filtration Rate 94 ML/MIN Lipase 132 U/L [facility] Supervised Visit with NATALI: No Diagnosis Primary Impression: Abdominal pain Qualified Codes: R10.32 - Left lower quadrant pain Additional Impression: Bacterial vaginosis Referrals: Primary Care Physician Additional Instruction: Please return to the ER if the condition worsens or any other new concerns. Take the antibiotic as per the prescription direction. Med/Other Pt SpecificInfo: Prescription(s) given Scripts Ciprofloxacin (Ciprofloxacin) 500 Mg Tab 500 MG PO BID for Infection for 7 Days, TAB 0 Refills Prov: Jefferson Gates MD 11/17/16 Metronidazole (Flagyl) 250 Mg Tab 250 MG PO TID for Infection for 7 Days, TAB 0 Refills Prov: Jefferson Gates MD 11/17/16 Disposition: 01 DISCHARGE HOME Condition: Stable Jefferson Gates MD Nov 17, 2016 20:02
== END 2016-11-17 20:34 | disposition home or self-care (01) ==
LOC: NEPD 15:20
DX: N76.0 Acute vaginitis (principal); R10.32 Left lower quadrant pain; J45.909 Unspecified asthma, uncomplicated
CPT/HCPCS: 76937; 80053; 81001; 83690; 85025; 87210; 87491; 87591; 96361; 96374; 96375; 99285; J1885; J2270; J2405; J7030

== ENCOUNTER → 2017-06-03 | Day surgery (SDC) | payer OTHER ==
--- NOTE | 2017-06-01 08:02 | MH ---
cc: Noe Khanna MD, Jesse S MD DATE OF ADMISSION: 06/03/2017 REASON FOR ADMISSION: The patient is scheduled for admission on June 03, 2017, for laparoscopy, hysteroscopy with endometrial ablation and cystoscopy. HISTORY OF PRESENT ILLNESS: The patient is a 41-year-old -[place] female, 6, para 5 with 4 vaginal deliveries, one and the was complicated by retained sponge. She has had issues since that time with pelvic pain and dysfunctional bleeding. She has had ultrasound that shows uterine fibroid, otherwise no significant findings. She has had normal Pap smears and at this point wants to proceed with endometrial ablation and laparoscopy for evaluation of pelvic pain. PAST MEDICAL HISTORY: Negative for heart, lung, liver disease, hypertension, diabetes or stroke. ASSESSMENT NURSE HISTORY: The patient's periods are once per month, last 7-10 days. PAST SURGICAL HISTORY: 1. Cholecystectomy. 2. and tubal ligation at the same setting. 3. She had a retained sponge that required surgical correction and revision at a later date. ALLERGIES: CHOCOLATE. TOMATO. MEDICATIONS: None. FAMILY HISTORY: Noncontributory. 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 She does not smoke, use alcohol or drugs. Has good social support. REVIEW OF SYSTEMS: As above. No chest pain, orthopnea or PND. No nausea or vomiting, fever or chills. PHYSICAL EXAMINATION: VITAL SIGNS: She is afebrile, vital signs stable. Height is 5 feet, 5 inches, weight 220. BMI is 37. Blood pressure 150/90. GENERAL: The patient is alert and oriented, in no acute distress. No sign of cognitive dysfunction or depression. HEENT: Within normal limits. NECK: Supple. No JVD. CHEST: Clear. HEART: Regular rate and rhythm. ABDOMEN: Soft, nontender. No hepatosplenomegaly. No CVA tenderness. PELVIC EXAM: Will be done in detail under anesthesia. EXTREMITIES: Normal. SKIN: Without rash. NEUROLOGIC: Exam nonfocal. No DVT signs. ASSESSMENT AND PLAN: Patient with at least three separate issues: 1. Chronic pelvic pain after surgical removal of retained sponge. At this point she may have issues with adhesions. She is aware of the risks, benefits and alternatives of the planned procedure. She is aware that the pain may not be relieved and that she is at increased risk of damage to underlying organs secondary to her prior surgical history. We will anticipate a left upper quadrant approach in light of her significant surgical history in the lower pelvis. 2. Regarding her bleeding issues, she has a fundal fibroid which is not likely to cause bleeding abnormalities. We will perform hysteroscopy and endometrial ablation. She is aware of the risks, benefits and alternatives of the planned procedure including damage to surrounding organs, bleeding, infection and failure to stop her vaginal bleeding. 3. Also, in light of her pelvic pain in the midline, we will also perform cystoscopy to evaluate the bladder also in light of the fact that she had to make sure there was no damage to the bladder or any significant anatomic abnormality of the bladder. The patient has had the opportunity to ask questions and they were answered to her satisfaction. We anticipate outpatient procedure. We will use DVT prophylaxis with sequential compression device, antibiotic prophylaxis with Ancef 2 grams IV. MD CHANDU Sullivan/FARHAD , 02:41 PM , 03:18 PM
[~2017-06-03] VITALS: Ht 165.1 cm; Wt 101.7 kg
[~2017-06-03] MED LIST changes: +*morphine SULFATE 10 MG/ML PERIprocedure ONLY ONE; +*morphine SULFATE 4 MG/ML PERIprocedure ONLY ONE; +ACETAMINOPHEN 1000 MG/100 ML 100 ML IV ONE; +BENA25CA4 PO; +CEFAZOLIN IV SCH; +CHLORHEXIDINE GLUCONATE 2 % 1 PACK (2 CLOTHS) TOPICAL PRN; +DEXAMETHASONE SOD PHOS 4 MG/ML VIAL IV ONE; +DO NOT ADM ANY ANTICOAGULANT DRUGS PRN; -ERGO1CAP30 PO; +FAMOTIDINE 20 MG/2 ML VIAL ONE; +HYDROmorphone HCL PF 2 MG/ML VIAL ONE; +KETOROLAC TROMETHAMINE 30 MG/ML (IVP) VIAL IV PUSH ONE; +KETOROLAC TROMETHAMINE 30 MG/ML (IVP) VIAL IV PUSH PRN; +LACTATED RINGER'S 1000 ML INJ 1,000 ML IV ONE; +LACTATED RINGER'S 1000 ML IV PRN; +LIDOCAINE 1%/EPINEPHrine 1:100,000 SOLN 30 ML VIAL ONE; +LIDOCAINE HCL 1% PF 5 ML SYRINGE OTHER ONE; +METOPROLOL TARTRATE 25 MG TAB PO PRN; +MIDAZOLAM HCL 2 MG/2 ML VIAL ONE; +NALOXONE HCL 0.4 MG/ML AMP ONE; +ONDANSETRON HCL 4 MG/2 ML VIAL IV ONE; +ONDANSETRON HCL 4 MG/2 ML VIAL IV PUSH PRN; +POVIDONE IODINE 5% (ANTISEPSIS KIT) 4 APPLICATIONS EACH NARE PRN; +PROPOFOL 200 MG/20 ML AMP IV ONE; +ROCURONIUM INJ 50 MG/5 ML SYRINGE IV PUSH ONE; +SODIUM CHLORID 0.9% 500 ML IV PRN; +SODIUM CHLORIDE 0.9% IV SCH; +SUGAMMADEX SODIUM 200 MG/2 ML VIAL IV PUSH ONE; +VITA500012 PO; +traMADol HCL 50 MG TAB PO PRN
[2017-06-03 12:30] VITALS: BP 122/78; PULSE 88; RESP 20; TEMP 97.8; O2SAT 98
--- NOTE | 2017-06-03 13:21 | MP ---
cc: Noe Khanna MD DATE OF OPERATION: 06/03/2017 PREOPERATIVE DIAGNOSES: 1. Chronic pelvic pain, code R10.2. 2. Dysfunctional uterine bleeding, code N93.8. POSTOPERATIVE DIAGNOSES: 1. Chronic pelvic pain, code R10.2. 2. Dysfunctional uterine bleeding, code N93.8. 3. Extensive abdominal pelvic adhesions involving small bowel, code N73.6. 4. A 22 modifier for complexity of dissection and length of time of at least 50% longer than typical for the procedure. PROCEDURE PERFORMED: 1. Laparoscopic salpingectomy, code 66907 2. Lysis of adhesions involving bowel, code 98741. 3. Hysteroscopy code 03781. 4. Cystoscopy, code 45233. SURGEON: Noe Khanna MD ANESTHESIA: General endotracheal with OG tube. ESTIMATED BLOOD LOSS: 10 mL. URINE OUTPUT: 200 mL. INSURANCE LEGAL ASSISTANT: [place] staff x 1. FINDINGS: External genitalia normal. POP-Q score: Aa is -2, Ap is -2. Point C is -5. Total vaginal length is 10. Genital hiatus is 6. Perineal body is 5. The uterus is approximately 15-week size, mobile on bimanual exam. Internal anatomy shows extensive abdominal pelvic adhesions from approximately 3 cm cephalad of the umbilicus down to the uterine fundus. The uterine fundus is adhesed to the lower abdominal wall. Tube is adhesed to the omentum on the left, ovary appears to be normal. Right tube and ovary unremarkable consistent with prior tubal ligation. Upper abdomen with adhesions consistent with prior cholecystitis and cholecystectomy. Following lysis of adhesions, the bowel was intact. No damage to the serosa noted. Uterus is mobile. Cystoscopy shows normal trigone. Good coaptation of the urethra. The ureteral orifices patent x 2. Dome and base of bladder normal. Hysteroscopy shows an intracavitary fibroid approximately 4 cm. SPECIMENS: Segment of left tube with omentum. COMPLICATIONS: None. DISPOSITION: Recovery room stable. COUNTS: Needle and sponge counts correct. DRAINS: Echavarria catheter. ANTIBIOTIC PROPHYLAXIS: Ancef 2 grams. DVT PROPHYLAXIS: Sequential compression devices. Time-out procedure and identification per protocol. SUMMARY OF INDICATIONS FOR THE PROCEDURE: A patient with chronic pelvic pain unresponsive to medicinal therapy. She has a history notable for that was complicated by a retained sponge which was removed at some time distant from the original procedure. Since that time, she has had significant issues with pelvic pain typically on the left side. She has also had issues with dysfunctional bleeding with hematocrit in the mid 30s. The patient had been initially consented for diagnostic laparoscopy, endometrial ablation, hysteroscopy and cystoscopy. DETAILS OF THE PROCEDURE: The patient was taken to the operating theatre, identified, prepped and draped in a standard fashion appropriate for the planned procedure. She was in the dorsal lithotomy position with careful attention paid to placement of her legs in the stirrups to avoid undue stress to sensitive neurovascular structures. The above findings noted. Neurovascular integrity documented. Echavarria catheter was placed. In light of the patient's prior surgical history, she had an OG tube placed. We identified Timmons's point in the left upper quadrant, infiltrated here with epinephrine/lidocaine solution. Used a Veress needle to confirm entry into the abdominal cavity, insufflated with 3 liters of CO2 gas to a pressure of 15 mmHg. A 5 mm scope was placed under direct visualization. The above findings noted. The most striking feature is extensive adhesions involving the omentum and bowel from approximately 3 cm cephalad of the umbilicus down to the uterine fundus. The uterine fundus itself was adhesed to the abdominal wall. Auxiliary trocar was placed in the left lower quadrant using a needle as a guide. The adhesions were taken down in a systematic technique using Harmonic energy for the areas that were predominantly omentum. There were many areas that were small bowel, which were taken down with cold scissors. This was a tedious process, but meticulous. We took this down to the uterine fundus. We were able to mobilize the bowel. Then, we had the uterine fundus that was adhesed to the abdominal wall. Using Harmonic energy, we took the adhesions down from the uterine fundus and abdominal wall. This mobilized the uterus nicely. We noted no damage to the bladder. There were extensive adhesions of the omentum and tube on the left side and since the patient's pain was typically in the left, we paid careful attention to this area. The tube seemed to be under tension. We removed the tube and a partial piece of the omentum and sent it for pathologic evaluation. Gas was expressed. All areas were hemostatic with and without gas pressure. Bowel was inspected and run. There was no sign of any significant damage to the serosa. There was no undue bleeding. There was a raw surface of the uterus that we did cover with hemostatic powder for added reassurance and to decrease any bleeding complications. At this point, hysteroscopy was performed after the incisions were closed with 4-0 Vicryl and Dermabond. We placed a 5mm scope a 30-degree scope and noted significant intracavitary fibroids. The plan endometrial ablation was aborted and we will discuss options for treatment later today. In light of the patient's issues with pelvic pain, we did perform cystoscopy, which was normal. We used a 17-Frisian bridge, a 70-degree scope. No abnormalities of the bladder noted. The procedure was concluded. The patient went to the recovery room in stable condition. Noe Khanna MD CJS/JIMMIE , 12:14 PM , 01:19 PM KAJAL
== END | disposition home or self-care (01) ==
LOC: HSDC 05:47
PROVIDERS: ATTEND Obstetrics & Gynecology Gynecology
DX: N93.8 Other specified abnormal uterine and vaginal bleeding (principal); R10.2 Pelvic and perineal pain; D25.9 Leiomyoma of uterus, unspecified; G89.29 Other chronic pain; N73.6 Female pelvic peritoneal adhesions (postinfective)
CPT/HCPCS: 00840; 00952; 58563; 58660; 88305; J0131; J0690; J1100; J1170; J1885; J2250; J2270; J2310; J2405; J3010; J7120

== ENCOUNTER 2017-07-01 11:22 | Emergency (ER) | payer SELFPAY ==
[~2017-07-01 11:22] MED LIST changes: -*morphine SULFATE 10 MG/ML PERIprocedure ONLY ONE; -*morphine SULFATE 4 MG/ML PERIprocedure ONLY ONE; -ACETAMINOPHEN 1000 MG/100 ML 100 ML IV ONE; -CEFAZOLIN IV SCH; -CHLORHEXIDINE GLUCONATE 2 % 1 PACK (2 CLOTHS) TOPICAL PRN; -DEXAMETHASONE SOD PHOS 4 MG/ML VIAL IV ONE; -DO NOT ADM ANY ANTICOAGULANT DRUGS PRN; -FAMOTIDINE 20 MG/2 ML VIAL ONE; -HYDROmorphone HCL PF 2 MG/ML VIAL ONE; -KETOROLAC TROMETHAMINE 30 MG/ML (IVP) VIAL IV PUSH ONE; -KETOROLAC TROMETHAMINE 30 MG/ML (IVP) VIAL IV PUSH PRN; -LACTATED RINGER'S 1000 ML INJ 1,000 ML IV ONE; -LACTATED RINGER'S 1000 ML IV PRN; -LIDOCAINE 1%/EPINEPHrine 1:100,000 SOLN 30 ML VIAL ONE; -LIDOCAINE HCL 1% PF 5 ML SYRINGE OTHER ONE; -MECL1TAB42 PO; -METOPROLOL TARTRATE 25 MG TAB PO PRN; -MIDAZOLAM HCL 2 MG/2 ML VIAL ONE; -NALOXONE HCL 0.4 MG/ML AMP ONE; -ONDANSETRON HCL 4 MG/2 ML VIAL IV ONE; -ONDANSETRON HCL 4 MG/2 ML VIAL IV PUSH PRN; -POVIDONE IODINE 5% (ANTISEPSIS KIT) 4 APPLICATIONS EACH NARE PRN; -PROPOFOL 200 MG/20 ML AMP IV ONE; -ROCURONIUM INJ 50 MG/5 ML SYRINGE IV PUSH ONE; -SERT-129 PO; -SODIUM CHLORID 0.9% 500 ML IV PRN; -SODIUM CHLORIDE 0.9% IV SCH; -SUGAMMADEX SODIUM 200 MG/2 ML VIAL IV PUSH ONE; -VITA500012 PO; -traMADol HCL 50 MG TAB PO PRN
[2017-07-01 12:03] VITALS: BP 132/82; PULSE 88; RESP 16; TEMP 98.5; O2SAT 100
== END 2017-07-01 12:00 | disposition left against medical advice (07) ==
LOC: NED 11:22
DX: M54.9 Dorsalgia, unspecified (principal)
CPT/HCPCS: 99281